=== PATIENT | female | born 1970 | race Caucasian/White ===

== ENCOUNTER 2019-12-18 08:27 | Outpatient (CLI) | payer BC, SELFPAY ==
--- NOTE | 2019-12-18 08:33 | USCV_ITS ---
Arden Vyas Age: 49 Gender: F : 1970 Exam Date: 12/18/2019 08:42 Ordering Phys: Wilder Jones MD Technologist: Coco Vargas [place]am Location: [facility] – [place] Indication: LIGHTHEADEDNESS Risk Factors: Previous Vascular Surgery: Right Brachial BP: / Left Brachial BP: / Right Left Velocity (cm/s) Spectral Plaque Velocity (cm/s) Spectral Plaque Syst/Diast Broadening Syst/Diast Broadening 73.90/ 25.40 Prox CCA 69.10 / 20.20 101.40/41.90 Mid CCA 102.50/ 27.60 94.80/ 37.50 Distal CCA 96.00 / 36.80 35.70/ 23.30 Prox ICA 52.60 / 15.80 80.40/ 34.70 Mid ICA 84.10 / 42.10 70.40/ 43.90 Distal ICA 63.10 / 15.20 70.50 ECA 115.70 0.79 ICA/CCA 0.82 Antegrade Vertebral Antegrade 30.80/ 12.40 cm/s 47.00/ 21.80 cm/s Tri Subclavian Tri 64.50 79.30 FINDINGS Comparison: none available. No significant elevation of systolic or diastolic velocities. Waveforms are normal. No significant amount of calcified plaque or intimal thickening identified. CONCLUSIONS Normal carotid doppler ultrasound. Dr. Chio Luis DO (Electronically Signed) Final Date: 18 December 2019 15:41 S
== END 2019-12-18 08:28 | disposition home or self-care (01) ==
LOC: RAD 08:30
PROVIDERS: PCP Family Medicine; Visit Provider Family Medicine
DX: R42 Dizziness and giddiness (principal)
CPT/HCPCS: 93880

== ENCOUNTER 2020-08-07 07:07 | Outpatient (CLI) | payer BC, SELFPAY ==
--- NOTE | 2020-08-07 07:14 | MM_ITS ---
WS: [id number] BILATERAL DIGITAL SCREENING MAMMOGRAPHY WITH CAD CLINICAL INFORMATION: SCREENING HISTORY: Screening mammogram. No current complaints. COMPARISON: None. TECHNIQUE: Bilateral CC and MLO views. FINDINGS: Scattered fibroglandular densities bilaterally. Intramammary lymph nodes upper outer left breast. No suspicious focal mass, asymmetry, calcifications, or architectural distortion. No evidence of maligna ncy. Punctate calcifications. MM/[id number] IMPRESSION: BI-RADS: 2-Benign FOLLOW UP: 1 Year Follow-up Recommend return to annual screening mammography.
== END 2020-08-07 07:08 | disposition home or self-care (01) ==
LOC: RADSHAW 07:09
PROVIDERS: PCP Family Medicine; Visit Provider Family Medicine
DX: Z12.31 Encounter for screening mammogram for malignant neoplasm of breast (principal)
CPT/HCPCS: 77067

== ENCOUNTER 2021-12-23 15:02 | Emergency (ER) | payer BC, SELFPAY ==
[2021-12-23 15:08] VITALS: BP 145/88; PULSE 74; RESP 16; TEMP 35.7; O2SAT 100
--- NOTE | 2021-12-23 15:23 | W.ED.NAVMDI ---
HPI - Nausea/Vomiting/Diarrhea General: Chief complaint: Nausea/Vomiting/Diarrhea Stated complaint: n/v Time Seen by Provider: 12/23/21 15:05 Source: patient Mode of arrival: ambulatory Limitations: no limitations History of Present Illness: 51-year-old female states that she has been vomiting since 1 AM. States her vomiting is been severe she states she is not able to tolerate any p.o. or solid foods. States she has had vomiting in the past but never this severe she denies abdominal pain denies any fevers denies any diarrhea denies any worsening improving factors. Associated nausea: Yes Associated symtoms: Reports nausea; Denies chest pain, dysuria or headache(s) Review of Systems Const: Denies: fever(s), chills, body aches or change in appetite Eyes: Denies: blurry vision or eye discomfort ENMT: Denies: throat pain or dental pain Card: Denies: chest pain Resp: Denies: dyspnea GI: Reports: nausea and vomiting : Denies: dysuria Musc: Denies: neck pain or back pain Skin/Breast: Denies: rash Neuro: Denies: headache(s) Psych: Denies: depression Nino/Lymph: Denies: easy bruising All/Imm: Denies: urticaria PFSH ED PFSH: Medical History Psychiatric care Social History (Updated 12/23/21 @ 15:23 by Vikas Alvarez MD) Substance/Drug Use: current Substance/Drug use type: Marijuana Physical Exam Const: COMMON NORMALS: no acute distress, patient oriented x3 and healthy appearing HENMT: COMMON NORMALS: normocephalic and atraumatic HEAD & SCALP: normocephalic and atraumatic Eye: COMMON NORMALS: Equal, round and reactive pupils present and EOMs intact bilaterally PUPIL: Yes Equal, round and reactive pupils present Neck/C-Spine: COMMON NORMALS: full ROM and supple Chest: COMMONS NORMALS: normal inspection of the chest and normal palpation of entire chest wall Resp: COMMON NORMALS: normal respiratory effort, No retractions, No use of accessory muscles and clear to auscultation bilaterally AUSCULTATION: clear to auscultation bilaterally Cardio: COMMON NORMALS: regular rate, regular rhythm and No murmurs present (Cardio) RATE: regular rate RHYTHM: regular rhythm GI: COMMON NORMALS: Normal to inspection, nondistended, normoactive bowel sounds present, Soft to palpation, non-tender and no masses PALPATION: Yes Soft to palpation Extremity: COMMON NORMALS: normal to inspection and full ROM Neuro: COMMON NORMALS: patient oriented x3, moves all extremities and no focal motor deficits Psych: COMMON NORMALS: mental status grossly normal, Normal thought process present and cooperative THOUGHT PROCESS: Normal thought process present Skin: COMMON NORMALS: no rashes or lesions noted and no wounds GENERAL SKIN EXAM: no rashes or lesions noted Course Vital Signs: Vital signs: Vital Signs Temperature 96.2 F L 12/23/21 15:08 Pulse Rate 72 12/23/21 16:30 Respiratory Rate 16 12/23/21 15:08 Blood Pressure 148/74 12/23/21 16:30 Pulse Oximetry 99 12/23/21 16:30 Oxygen Delivery Me thod 12/23/21 16:30 MDM - Nausea/Vomiting/Diarrhea Medical Decision Making Patient presents with nausea and vomiting she feels much improved here after Reglan she has been able to tolerate p.o. her blood work here is normal abdominal exam is benign she has no signs of acute surgical abdomen or bowel obstruction she is stable for discharge she is to follow-up with her PCP and return if worsening will prescribe Reglan for home. Lab Data : 12/23/21 15:22 12/23/21 15: Laboratory Results WBC 11.3 10^3/uL (4.0-10.0) H 12/23/21 15: RBC 5.36 10^6/uL (4.1-5.3) H 12/23/21 15:22 Hgb 15.4 g/dL (11.5-15.3) H 12/23/21 15: Hct 46.4 % (37.0-47.0) 12/23/21 15: MCV 86.6 fl (81-99) 12/23/21 15: MCH 28.7 pg (28.0-34.0) 12/23/21 15: MCHC 33.2 g/dL (30.0-36.0) 12/23/21: RDW 12.8 % (12.1-15.1) 12/23/21 15:22 Plt Count 335 10^3/cmm (130-400) 12/23/21 15:22 MPV 9.9 fL (7.4-10.4) 12/23/21 15: Neut % (Auto) 92.0 % 12/23/21 15: Lymph % (Auto) 5.4 % 12/23/21 15: [place] % (Auto) 2.0 % 12/23/21 15: Eos % (Auto) 0.0 % 12/23/21 15: Baso % (Auto) 0.3 % 12/23/21 15: Neut # (Auto) 10.44 10^3/uL (1.8-7.7) H 12/23/21 15: Lymph # (Auto) 0.6 10^3/uL (0.8-4.8) L 12/23/21 15: [place] # (Auto) 0.2 10^3/uL (0.2-0.9) 12/23/21: Eos # (Auto) 0.0 10^3/uL (0.0-0.8) 12/23/21: Baso # (Auto) 0.0 10^3/uL (0.0-0.1) 12/23/21 15: Nucleated RBC % (auto) 0 % 12/23/21: Nucleated RBCs # 0.0 /100WBC 12/23/21 15:22 Sodium 140 mmol/L (136-145) 12/23/21 15: Potassium 3.8 mmol/L (3.5-5.1) 12/23/21 15: Chloride 103 mmol/L (98-107) 12/23/21 15:22 Carbon Dioxide 22 mmol/L (22-29) 12/23/21 15:22 Anion Gap 18.8 (5-19) 12/23/21 15:22 BUN 14 mg/dL (6-20) 12/23/21 15:22 Creatinine 0.7 mg/dL (0.5-0.9) 12/23/21 15:22 GFR Calculation 88.2 mL/min (90-130) L 12/23/21 15:22 Glucose 161 mg/dL (65-115) H 12/23/21 15:22 Calculated Osmolality 294 mOsm/kg (285-295) 12/23/21 15:22 Calcium 9.4 mg/dL (8.5-10.5) 12/23/21 15:22 Total Bilirubin 0.6 mg/dL (0.15-1.2) 12/23/21 15:22 AST 21 U/L (0-32) 12/23/21 15:22 ALT 17 U/L (0-33) 12/23/21 15:22 Alkaline Phosphatase 58 IU/L (35-105) 12/23/21 15:22 Total Protein 7.4 g/dL (6.6-8.7) 12/23/21 15: Albumin 4.6 g/dL (3.5-5.2) 12/23/21 15: Globulin 2.8 g/dL (1.3-4.6) 12/23/21 15: Lipase 9 U/L (13-60) L 12/23/21 15:22 Discharge Plan Discharge Patient Disposition: Home Clinical Impression: Vomiting Prescriptions: New Reglan 10 mg tablet 10 mg PO Q6H PRN (Reason: nausea and vomiting) Qty: 20 0RF No Action bupropion HCl 300 mg tablet extended release 24 hr 300 mg PO QAM estradiol 1 mg tablet 1 mg PO DAILY Rx Instructions: off 1 week; repeat cycle Discharge Orders: Discharge ED (Routine); Ordered 12/23/21 Ordered By: Vikas Alvarez Referrals: Wilder Jones MD [Primary Care Provider] - 1-3 days Discharge Diet: Advance as tolerated Discharge Activity: Resume usual activity Patient Instructions: Acute Nausea and Vomiting (ED) Coding Level of Care Code ED C D Area Supervisor for Christopherg Fwd Exam Comprehensive
[2021-12-23 15:27] LABS: Basophils % 0.3 %; Hematocrit 46.4 % (37.0-47.0); Hemoglobin 15.4 g/dL (11.5-15.3); Lymphocytes # 0.6 10^3/uL (0.8-4.8); Lymphocytes % 5.4 %; Mean Corpuscular HGB Conc 33.2 g/dL (30.0-36.0); Mean Corpuscular Hemoglobin 28.7 pg (28.0-34.0); Mean Corpuscular Volume 86.6 fl (81-99); Mean Platelet Volume 9.9 fL (7.4-10.4); Monocytes # 0.2 10^3/uL (0.2-0.9); Neutrophils # 10.44 10^3/uL (1.8-7.7); Nucleated Red Blood Cells % 0 %; Platelet Count 335 10^3/cmm (130-400); Red Blood Count 5.36 10^6/uL (4.1-5.3); Red Cell Distribution Width 12.8 % (12.1-15.1); White Blood Count 11.3 10^3/uL (4.0-10.0)
[2021-12-23 15:30] VITALS: BP 160/86; PULSE 70; O2SAT 97
[2021-12-23] MEDS: diphenhydrAMINE 50 mg/mL SDV 1mL IVP (15:45)
[2021-12-23] MEDS: sodium chloride 0.9% 1,000 ML 999 ML IV (15:45)
[2021-12-23] MEDS: metoclopramide 5 mg/mL SDV 2 mL 10 MG IVP (15:45)
[2021-12-23 15:58] LABS: Alanine Aminotransferase 17 U/L (0-33); Albumin Level 4.6 g/dL (3.5-5.2); Alkaline Phosphatase 58 IU/L (35-105); Anion Gap 18.8 (5-19); Aspartate Amino Transferase 21 U/L (0-32); Blood Urea Nitrogen 14 mg/dL (6-20); Calcium 9.4 mg/dL (8.5-10.5); Carbon Dioxide 22 mmol/L (22-29); Chloride 103 mmol/L (98-107); Globulin 2.8 g/dL (1.3-4.6); Glomerular Filtration Rate 88.2 mL/min (90-130); Glucose 161 mg/dL (65-115); Lipase 9 U/L (13-60); Osmolality Calculated 294 mOsm/kg (285-295); Potassium 3.8 mmol/L (3.5-5.1); Sodium 140 mmol/L (136-145); Total Bilirubin 0.6 mg/dL (0.15-1.2); Total Protein 7.4 g/dL (6.6-8.7)
[2021-12-23 16:30] VITALS: BP 148/74; PULSE 72; O2SAT 99
== END 2021-12-23 16:46 | disposition home or self-care (01) ==
PROVIDERS: Emergency Provider Emergency Medicine; PCP Family Medicine
DX: R11.11 Vomiting without nausea (principal)
CPT/HCPCS: 80053; 83690; 85025; 96361; 96374; 96375; 99284; J1200; J2765; J7030

== ENCOUNTER → 2022-05-31 08:31 | Outpatient (BNVA) | payer BC, SELFPAY | PROVIDERS: PCP Family Medicine; Visit Provider Family Medicine | DX: Z00.00 Encounter for general adult medical examination without abnormal findings (principal); I10 Essential (primary) hypertension; F32.A Depression, unspecified | CPT/HCPCS: 80053; 80061 ==

== ENCOUNTER 2022-06-10 07:29 | Outpatient (CLI) | payer BC, SELFPAY ==
--- NOTE | 2022-06-10 07:30 | MM_ITS ---
WS: [id number] BILATERAL SCREENING DIGITAL TOMOSYNTHESIS MAMMOGRAM WITH CAD HISTORY: screening COMPARISON: 08/07/2020 Bilateral CC and MLO views with tomosynthesis and synthetic mammography submitted. Computer aided det ection analyzed. Breast composition: There are scattered areas of fibroglandular density. No suspicious masses, microc alcifications or architectural distortion. Benign calcification central LEFT breast. MM/[id number] IMPRESSION: BI-RADS: 2-Benign FOLLOW UP: 1 Year Follow-up
== END 2022-06-10 07:30 | disposition home or self-care (01) ==
LOC: RAD 07:29
PROVIDERS: PCP Family Medicine; Visit Provider Family Medicine
DX: Z12.31 Encounter for screening mammogram for malignant neoplasm of breast (principal)
CPT/HCPCS: 77063; 77067

== ENCOUNTER → 2022-08-09 11:18 | Outpatient (BNVA) | payer BC, SELFPAY | PROVIDERS: PCP Family Medicine; Visit Provider Family Medicine | DX: R30.0 Dysuria (principal) | CPT/HCPCS: 81003; 87077; 87086; 87184 ==

== ENCOUNTER → 2022-12-12 11:58 | Outpatient (BNVA) | payer BC, SELFPAY | PROVIDERS: PCP Family Medicine; Visit Provider Podiatrist Foot & Ankle Surgery | DX: Q82.8 Other specified congenital malformations of skin; M25.871 Other specified joint disorders, right ankle and foot; M21.611 Bunion of right foot; M21.612 Bunion of left foot; M20.40 Other hammer toe(s) (acquired), unspecified foot | CPT/HCPCS: 73630 ==

== ENCOUNTER → 2023-02-14 13:15 | Outpatient (BNVA) | payer BC, SELFPAY | PROVIDERS: PCP Family Medicine; Visit Provider Registered Nurse Neonatal Intensive Care | DX: R39.9 Unspecified symptoms and signs involving the genitourinary system (principal); J01.90 Acute sinusitis, unspecified; B96.89 Other specified bacterial agents as the cause of diseases classified elsewhere | CPT/HCPCS: 81003 ==

== ENCOUNTER → 2023-05-26 08:03 | Outpatient (BNVA) | payer BC, SELFPAY | PROVIDERS: PCP Family Medicine; Visit Provider Family Medicine | DX: I10 Essential (primary) hypertension (principal) | CPT/HCPCS: 80053; 80061; 84443; 85025 ==

== ENCOUNTER 2024-01-25 08:46 | Outpatient (CLI) | payer BC, MEDICAID, SELFPAY ==
--- NOTE | 2024-01-25 08:54 | MM_ITS ---
WS: [id number] BILATERAL SCREENING DIGITAL TOMOSYNTHESIS MAMMOGRAM WITH CAD HISTORY: SCREEN COMPARISON: 06/10/2022, 08/07/2020 Bilateral CC and MLO views with tomosynthesis and synthetic mammography submitted. Computer aided det ection analyzed. Breast composition: There are scattered areas of fibroglandular density. No suspicious masses, microc alcifications or architectural distortion. Benign calcification central LEFT breast. No suspicious ma sses. No distortion. MM/[id number] IMPRESSION: BI-RADS: 2 - Benign. FOLLOW UP: 1 Year Follow-up
== END 2024-01-25 08:47 | disposition home or self-care (01) ==
LOC: RAD 08:46
PROVIDERS: PCP Family Medicine; Visit Provider Family Medicine
DX: Z12.31 Encounter for screening mammogram for malignant neoplasm of breast (principal); R92.323 Mammographic fibroglandular density, bilateral breasts; R92.1 Mammographic calcification found on diagnostic imaging of breast
CPT/HCPCS: 77063; 77067

== ENCOUNTER 2024-07-12 11:28 | Outpatient (CLI) | payer BC, MEDICAID, SELFPAY ==
--- NOTE | 2024-07-12 11:36 | XR_ITS ---
WS: [id number] Right shoulder, 2 views, 07/12/2024 Clinical Data: PAIN IN RIGHT SHOULDER Comparison: None. Findings: No fractures or dislocations are seen. The AC joint is normal. The adjacent right clavicle, right scapula and ribs are normal. The soft tissues are unremarkable. There is minimal irregularity of the lesser tuberosity at the greater tuberosity. 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
--- NOTE | 2024-07-12 11:36 | XR_ITS ---
WS: [id number] Left shoulder, 2 views, 07/12/2024 Clinical Data: PAIN IN LEFT SHOULDER Comparison: None. Findings: No fractures or dislocations are seen. The AC joint is normal. The adjacent left clavicle, left scapula and ribs are normal. The soft tissues are unremarkable. There is irregularity of the greater tuberosity. 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
== END 2024-07-12 11:29 | disposition home or self-care (01) ==
LOC: RAD 11:33
PROVIDERS: PCP Family Medicine; Visit Provider Family Medicine
DX: M19.012 Primary osteoarthritis, left shoulder (principal); M19.011 Primary osteoarthritis, right shoulder
CPT/HCPCS: 73030

== ENCOUNTER 2024-07-24 10:05 | Outpatient (CLI) | payer BC, MEDICAID, SELFPAY ==
--- NOTE | 2024-07-24 10:10 | CT_ITS ---
WS: [id number] LDCT LUNG CANCER SCREENING TECHNIQUE: Noncontrast CT of the chest with coronal and sagittal reformatted images. CLINICAL INFORMATION: NICOTINE DEPENDENCE, CIGARETTES COMPARISON: None. DLP: 83.51 mGy.cm DIvol: Mean CTDIvol: 1.70 (mGy) All CT scans at [facility] use at least one of these dose optimization techniques: automated exposure control; mA and/or kV adjustment per patient size (includes targeted exams where dose is matched to clinical indication); or iterative reconstruction. FINDINGS: No suspicious pulmonary parenchymal abnormalities. Aortic calcification. No mediastinal or hilar lymphadenopathy. No axillary lymphadenopathy. Moderate thoracic kyphosis with advanced to space narrowing the midthoracic spine with endplate degenerative changes. Chronic anterior wedging in the midthoracic spine. Tiny esophageal hiatal hernia. CT/CT lung screening [id number] IMPRESSION: LUNG-RADS: 1-Negative FOLLOW UP: 12 Month: Continue annual screening with LDCT
== END 2024-07-24 10:06 | disposition home or self-care (01) ==
LOC: RAD 10:07
PROVIDERS: PCP Family Medicine; Visit Provider Family Medicine
DX: Z12.2 Encounter for screening for malignant neoplasm of respiratory organs (principal); F17.210 Nicotine dependence, cigarettes, uncomplicated; I70.0 Atherosclerosis of aorta; M40.294 Other kyphosis, thoracic region; R93.7 Abnormal findings on diagnostic imaging of other parts of musculoskeletal system; M48.54XD Collapsed vertebra, not elsewhere classified, thoracic region, subsequent encounter for fracture with routine healing
CPT/HCPCS: 71271